=== PATIENT | male | born 1980 | race Caucasian/White ===

== ENCOUNTER → 2016-11-11 | Outpatient (CLI) | payer MEDICARE, OTHER ==
--- NOTE | 2016-11-11 12:41 | P.PN ---
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 He is also morbidly obese and has lumbar spondylosis with lower back pain. The patient's pain has been well controlled with OxyContin 20 mg 3-4 times a day and Lyrica 300 mg a day. The patient denies any side effects to these medications except for constipation and he takes lactulose twice a day for it.. He does not show any suicidal ideation. He is alert oriented 3 in no apparent distress. Lungs are clear to auscultation heart is regular no murmurs. I encouraged the patient to quit smoking tobacco on he said that he's been working on it he is down now from one pack of cigarettes a day to only 8 cigarettes a day. Today I will continue with his regular pain medications I will see him 2 months from now.
== END | disposition home or self-care (01) ==
CPT/HCPCS: 99211